=== PATIENT | male | born 1975 | race Caucasian/White ===

== ENCOUNTER 2024-07-10 12:22 | Emergency (ER) | payer OTHER, SELFPAY ==
[2024-07-10 12:29] VITALS: BP 132/85; PULSE 69; RESP 16; TEMP 36.8; O2SAT 97; BMI 21.6
--- NOTE | 2024-07-10 13:42 | ED.HA ---
HPI - Headache <Katie Bradley PA-C - Last Filed: 07/10/24 16:19> General Chief Complaint: Headache Stated Complaint: Severe Headache, Vomiting Time Seen by Provider: 07/10/24 13:41 Mode of arrival: Ambulatory History of Present Illness HPI Narrative: Mr. Jean-Baptiste is a very pleasant 49-year-old male with no reported past medical history who presents to the emergency department for a headache x3 days. He is here with his mother who contributes to the history. Patient states that he was traveling via plane on . When he was in the shuttle on his way home noticed a gradual development of a frontal headache. States that since then the headache has been persistent. Reports that it was at its worst night and has slightly resolved since then however he continues to have a pressure sensation across his forehead, occasionally worse on the right side. Denies a history of headache. He overall feels unwell and has had some nausea and vomiting on Friday. He has some body aches and slightly irritated throat. Reports taking ibuprofen yesterday which made him feel like his mind was racing so he has not taken any other medications however he has been applying ice packs to his forehead. Denies dizziness, double vision, lightheadedness, fevers. No head trauma. No drug or alcohol use. Related Data Previous Rx's Medication Instructions Recorded ondansetron 4 mg disintegrating 4 mg PO Q8H PRN nausea and 07/10/24 tablet vomiting #12 tabs Allergies Allergy/AdvReac Type Severity Reaction Status Date / Time No Known Drug Allergies Allergy Verified 07/10/24 12:29 Review of Systems <Katie Bradley PA-C - Last Filed: 07/10/24 16:19> Review of Systems ROS Unobtainable: All systems reviewed & are unremarkable except as noted in HPI and below Patient History <Katie Bradley PA-C - Last Filed: 07/10/24 16:19> Social History Smoking Status: Never smoker Smoking Status: Never smoker Exam <Katie Bradley PA-C - Last Filed: 07/10/24 16:19> Narrative Exam Narrative: GENERAL: 49 year old patient appears stated age. Well-developed patient, in no acute distress. HEAD: Atraumatic. Normocephalic. EYES: PERRL. Extraocular motions intact. No scleral icterus. No injection or drainage. ENT: Normal TMs bilaterally. Nose without bleeding, purulent drainage. Throat without erythema, tonsillar hypertrophy or exudate. Airway patent. NECK: Trachea midline. Cervical ROM intact. CARDIOVASCULAR: Regular rate and rhythm. RESPIRATORY: ?Nonlabored respirations. ?Speaking in clear, full sentences. ?Clear to auscultation. Breath sounds equal bilaterally. No wheezes, rales, or rhonchi. ? GASTROINTESTINAL: Abdomen soft, non-tender, nondistended. EXTREMITIES: No edema or joint tenderness. BACK: Nontender without deformity or crepitance. No flank tenderness. NEURO: AOx3. ?Clear speech. ?Moves all 4 extremities appropriately. SKIN: No rash or erythema of visible areas Initial Vital Signs Initial Vital Signs: Vital Signs Temperature 98.3 F 07/10/24 12:29 Pulse Rate 69 07/10/24 12:29 Respiratory Rate 16 07/10/24 12:29 Blood Pressure 132/85 07/10/24 12:29 Pulse Oximetry 97 07/10/24 12:29 Oxygen Delivery Method Room Air 07/10/24 12:29 <Ross Strickland MD - Last Filed: 07/10/24 20:40> Initial Vital Signs Initial Vital Signs: Vital Signs Temperature 98.3 F 07/10/24 12:29 Pulse Rate 69 07/10/24 12:29 Respiratory Rate 16 07/10/24 12:29 Blood Pressure 132/85 07/10/24 12:29 Pulse Oximetry 97 07/10/24 12:29 Oxygen Delivery Method Room Air 07/10/24 12:29 Course <Katie Bradley PA-C - Last Filed: 07/10/24 16:19> Orders Ordered: ED Orders 07/10/24 14:20 Complete Blood Count AUTO DIFF Stat Comprehensive Metabolic Panel Stat 07/10/24 14:23 Covid-19 + FLU A/B + RSV - PCR Stat Discontinued Medications Acetaminophen (Acetaminophen 325 Mg Tablet) 975 mg PO NOW ONE Stop: 07/10/24 13:54 Last Admin: 07/10/24 14:12 Dose: 975 mg Documented By: LAISHA Diphenhydramine HCl (Diphenhydramine 50 Mg/Ml Vial) 25 mg IV NOW ONE Stop: 07/10/24 13:54 Last Admin: 07/10/24 14:11 Dose: 25 mg Documented By: LAISHA Sodium Chloride (Normal Saline 0.9%) 1,000 mls @ 1,000 mls/hr IV BOLUS ONE Stop: 07/10/24 14:52 Last Infusion: 07/10/24 15:32 Dose: Infused Documented By: Admin: 07/10/24 14:13 Dose: 1,000 mls/hr Documented By: LAISHA Prochlorperazine (Prochlorperazine 10 Mg/2 Ml Vial) 10 mg IV NOW ONE Stop: 07/10/24 13:54 Last Admin: 07/10/24 14:10 Dose: 10 mg Documented By: LAISHA Vital Signs Vital signs: Vital Signs - 8 hr 07/10/24 16:23 Pulse Rate 65 Respiratory Rate 16 Blood Pressure 127/81 Pulse Oximetry 98 Oxygen Delivery Method Room Air <Ross Strickland MD - Last Filed: 07/10/24 20:40> Orders Ordered: ED Orders 07/10/24 14:20 Complete Blood Count AUTO DIFF Stat Comprehensive Metabolic Panel Stat 07/10/24 14:23 Covid-19 + FLU A/B + RSV - PCR Stat Discontinued Medications Acetaminophen (Acetaminophen 325 Mg Tablet) 975 mg PO NOW ONE Stop: 07/10/24 13:54 Last Admin: 07/10/24 14:12 Dose: 975 mg Documented By: LAISHA Diphenhydramine HCl (Diphenhydramine 50 Mg/Ml Vial) 25 mg IV NOW ONE Stop: 07/10/24 13:54 Last Admin: 07/10/24 14:11 Dose: 25 mg Documented By: LAISHA Sodium Chloride (Normal Saline 0.9%) 1,000 mls @ 1,000 mls/hr IV BOLUS ONE Stop: 07/10/24 14:52 Last Infusion: 07/10/24 15:32 Dose: Infused Documented By: Admin: 07/10/24 14:13 Dose: 1,000 mls/hr Documented By: LAISHA Prochlorperazine (Prochlorperazine 10 Mg/2 Ml Vial) 10 mg IV NOW ONE Stop: 07/10/24 13:54 Last Admin: 07/10/24 14:10 Dose: 10 mg Documented By: DKB Vital Signs Vital signs: Vital Signs - 8 hr 07/10/24 16:23 Pulse Rate 65 Respiratory Rate 16 Blood Pressure 127/81 Pulse Oximetry 98 Oxygen Delivery Method Room Air MDM - Headache <Katie Bradley PA-C - Last Filed: 07/10/24 16:19> Medical Records Attestation: I reviewed the patient's medical records. Lab Data 07/10/24 14:20 07/10/24 14:20 Labs: Lab Results 07/10/24 07/10/24 Range/Units 14:20 14:23 WBC 7.6 (4.5-11.0) X10^3/uL RBC 4.79 (4.5-5.9) X10^6/uL Hgb 14.8 (13.5-17.5) g/dL Hct 43.6 (41-53) % MCV 91.1 (80-100) fL MCH 30.8 (26-34) PG MCHC 33.8 (30-36) % RDW 12.9 (11.6-14.8) % Plt Count 204 (150-400) X10^3/uL Neut % (Auto) 76.7 H (50-75) % Lymph % (Auto) 13.9 L (25-40) % [place] % (Auto) 8.3 (3-14) % Eos % (Auto) 0.6 L (2-4) % Baso % (Auto) 0.5 (0-2) % Neut # (Auto) 5800 (4134-1420) /uL Lymph # (Auto) 1100 (8115-7340) /uL [place] # (Auto) 600 (0-900) /uL Eos # (Auto) 0 (0-450) /uL Baso # (Auto) 0 (0-100) /uL Sodium 135 L (137-145) mmol/L Potassium 4.0 (3.4-5.1) mmol/L Chloride 101 (98-107) mmol/L Carbon Dioxide 26 (22-32) mmol/L BUN 25 H (9-20) mg/dL Creatinine 1.32 H (0.66-1.25) mg/dL Estimated GFR > 60 (>60) mL/min BUN/Creatinine Ratio 18.9 (6-22) Glucose 108 H (70-100) mg/dL Calcium 9.0 (8.4-10.2) mg/dL Total Bilirubin 0.6 (0.2-1.3) mg/dL AST 38 (17-59) IU/L ALT 23 (<50) IU/L Alkaline Phosphatase 76 (38-126) U/L Total Protein 7.5 (6.3-8.2) g/dL Albumin 4.1 (3.5-5.0) g/dL Globulin 3.4 (1.7-4.1) g/dL Albumin/Globulin Ratio 1.2 (1.0-2.8) SARS-CoV-2 (PCR) Negative (Negative) Influenza A (RT-PCR) Flu a negative (NEGATIVE) Influenza B (RT-PCR) Flu b negative (NEGATIVE) RSV (PCR) Negative (Negative) MDM Narrative Medical decision making narrative: 49-year-old male with no reported past medical history who presents to the emergency department for a headache x3 days. He is here with his mother who contributes to the history. Differential diagnosis includes but is not limited to tension headache, migraine headache, viral syndrome, influenza, dehydration, electrolyte abnormality, gastroenteritis, etc. On exam the patient is in no acute distress, nontoxic-appearing, all vital signs within normal limits. No focal neurologic deficits. No meningismus. Normal TMs bilaterally. History is concerning for possible viral syndrome versus tension headache. No sudden onset or neurologic deficits or changes in vision concerning for the need for emergent head imaging. We will treat patient with IV fluids, Compazine, Benadryl, Tylenol and obtain baseline CBC and CMP given nausea and vomiting. No baseline labs available. Normal WBC count 7.6, hemoglobin 14.8, hematocrit 43.6. Sodium mildly decreased 135 normal potassium 4.0 chloride 101. BUN 25 and creatinine 1.32 with no baseline. Glucose 108. BUN creatinine ratio 18.9. 1523 re-examination of patient: Discussed lab work results including mildly elevated BUN and creatinine. Patient's headache is improving. COVID/flu/RSV negative. Patient feeling better. States that headache is still there slightly however much improved. He is requesting discharge at this time. Prescribed him Zofran if needed for nausea and recommend Tylenol if needed for headache. Recommended hydration. We did discussed strict ER return precautions and he understands that if his symptoms get worsening he may need to return to the ER for further evaluation or possible imaging. Patient and his mother verbalized understanding of all information and he is stable for discharge at this time. <Ross Strickland MD - Last Filed: 07/10/24 20:40> Lab Data Labs: Lab Results 07/10/24 07/10/24 Range/Units 14:20 14:23 WBC 7.6 (4.5-11.0) X10^3/uL RBC 4.79 (4.5-5.9) X10^6/uL Hgb 14.8 (13.5-17.5) g/dL Hct 43.6 (41-53) % MCV 91.1 (80-100) fL MCH 30.8 (26-34) PG MCHC 33.8 (30-36) % RDW 12.9 (11.6-14.8) % Plt Count 204 (150-400) X10^3/uL Neut % (Auto) 76.7 H (50-75) % Lymph % (Auto) 13.9 L (25-40) % [place] % (Auto) 8.3 (3-14) % Eos % (Auto) 0.6 L (2-4) % Baso % (Auto) 0.5 (0-2) % Neut # (Auto) 5800 (1953-5001) /uL Lymph # (Auto) 1100 (4548-3351) /uL [place] # (Auto) 600 (0-900) /uL Eos # (Auto) 0 (0-450) /uL Baso # (Auto) 0 (0-100) /uL Sodium 135 L (137-145) mmol/L Potassium 4.0 (3.4-5.1) mmol/L Chloride 101 (98-107) mmol/L Carbon Dioxide 26 (22-32) mmol/L BUN 25 H (9-20) mg/dL Creatinine 1.32 H (0.66-1.25) mg/dL Estimated GFR > 60 (>60) mL/min BUN/Creatinine Ratio 18.9 (6-22) Glucose 108 H (70-100) mg/dL Calcium 9.0 (8.4-10.2) mg/dL Total Bilirubin 0.6 (0.2-1.3) mg/dL AST 38 (17-59) IU/L ALT 23 (<50) IU/L Alkaline Phosphatase 76 (38-126) U/L Total Protein 7.5 (6.3-8.2) g/dL Albumin 4.1 (3.5-5.0) g/dL Globulin 3.4 (1.7-4.1) g/dL Albumin/Globulin Ratio 1.2 (1.0-2.8) SARS-CoV-2 (PCR) Negative (Negative) Influenza A (RT-PCR) Flu a negative (NEGATIVE) Influenza B (RT-PCR) Flu b negative (NEGATIVE) RSV (PCR) Negative (Negative) Discharge Plan Departure Patient Disposition: Home Clinical Impression: Headache Qualifiers: Headache type: unspecified Headache chronicity pattern: acute headache Intractability: not intractable Qualified Code(s): R51.9 - Headache, unspecified Nausea & vomiting Qualifiers: Vomiting type: unspecified Qualified Code(s): R11.2 - Nausea with vomiting, unspecified Instructions: DI for Headache Activity Restrictions/Additional Instructions: Dear Mr. Jean-Baptiste, Today you were evaluated for headache. Your COVID/flu/RSV swab was negative. Your lab work was overall reassuring however your complete metabolic panel did reveal some changes in your kidney function which are concerning for dehydration. It is very important to hydrate with small but frequent sips of water or Pedialyte and follow up with the primary care doctor to have repeat lab work done. I have prescribed you a nausea medicine called Brandon to take if needed. You may also take Acetaminophen 650 mg every 4-6 hours for pain. Do not exceed 3000 mg of Tylenol a day as this can cause liver damage. Do not drink alcohol with either of these medications. Return to the ER if you have worsening symptoms, symptoms that do not improve, change in vision, persistent vomiting, or any other concerns. Please follow up with your primary care doctor within the next 2-3 days for ER follow-up. (If you do not have a PCP you can call [phone]. ?to schedule an appointment with an [facility] Primary Care Provider) IF YOU DEVELOP ANY NEW OR WORSENING SYMPTOMS, RETURN TO THE ER! Please read the attached instructions, they highlight more specific treatments and interventions for you at home. Thank you for letting me participate in your care, Katie Bradley PA-C Prescriptions: New ondansetron 4 mg tablet,disintegrating 4 mg PO Q8H PRN (Reason: nausea and vomiting) Qty: 12 0RF Referrals: Miscellaneous,Doctor, [Primary Care Provider] - Stand Alone Forms: Patient Portal/API/Survey ED Sign-out <Ross Strickland MD - Last Filed: 07/10/24 20:40> Cosign ED Attending Erick Attestation: I was immediately available in the department for consultation. This documentation has been reviewed and I agree with assessment and plan. Supervised by Ross Strickland MD
[2024-07-10] MEDS: PROCHLORPERAZINE 10 MG/2 ML VIAL IV (14:10)
[2024-07-10] MEDS: diphenhydrAMINE 50 MG/ML VIAL 25 MG IV (14:11)
[2024-07-10] MEDS: ACETAMINOPHEN 325 MG TABLET 975 MG PO (14:12)
[2024-07-10] MEDS: SODIUM CHLORIDE 0.9% 1,000 ML 1000 ML IV (14:13)
[2024-07-10 14:33] LABS: Add Manual Diff / Slide Review NO; Basophils Absolute Auto 0 /uL (0-100); Basophils Percent Auto 0.5 % (0-2); Eosinophils Absolute Auto 0 /uL (0-450); Eosinophils Percent Auto 0.6 % (2-4); Hematocrit 43.6 % (41-53); Hemoglobin 14.8 g/dL (13.5-17.5); Lymphocytes Absolute Auto 1100 /uL (1100-4500); Lymphocytes Percent Auto 13.9 % (25-40); Mean Corpuscular HGB Conc 33.8 % (30-36); Mean Corpuscular Hemoglobin 30.8 PG (26-34); Mean Corpuscular Volume 91.1 fL (80-100); Monocytes Absolute Auto 600 /uL (0-900); Monocytes Percent Auto 8.3 % (3-14); Neutrophils Absolute Auto 5800 /uL (1500-7000); Neutrophils Percent Auto 76.7 % (50-75); Platelet Count 204 X10^3/uL (150-400); Red Blood Cell Count 4.79 X10^6/uL (4.5-5.9); Red Cell Distribution Width 12.9 % (11.6-14.8); White Blood Cell Count 7.6 X10^3/uL (4.5-11.0)
[2024-07-10 14:49] LABS: Alanine Aminotransferase 23 IU/L (<50); Albumin 4.1 g/dL (3.5-5.0); Albumin Globulin Ratio 1.2 (1.0-2.8); Alkaline Phosphatase 76 U/L (38-126); Aspartate Aminotransferase 38 IU/L (17-59); BUN Creatinine Ratio 18.9 (6-22); Bilirubin Total 0.6 mg/dL (0.2-1.3); Blood Urea Nitrogen 25 mg/dL (9-20); Carbon Dioxide 26 mmol/L (22-32); Chloride 101 mmol/L (98-107); Estimated Glomerular Filt Rate > 60 mL/min (>60); Globulin 3.4 g/dL (1.7-4.1); Glucose 108 mg/dL (70-100); HEMOLYSIS < 15 (0-50); Sodium 135 mmol/L (137-145); Total Protein 7.5 g/dL (6.3-8.2)
[2024-07-10 15:35] LABS: COVID-19 CEPHEID 4-PLEX PCR Negative (Negative); Influenza A - CEPHEID Flu A NEGATIVE (NEGATIVE); Influenza B - CEPHEID Flu B NEGATIVE (NEGATIVE); Respiratory Syncytial Virus Negative (Negative)
[2024-07-10 16:23] VITALS: BP 127/81; PULSE 65; RESP 16; O2SAT 98
== END 2024-07-10 16:23 | disposition home or self-care (01) ==
PROVIDERS: Emergency Provider Physician Assistant
DX: R51.9 Headache, unspecified (principal); R11.2 Nausea with vomiting, unspecified
CPT/HCPCS: 0241U; 36415; 80053; 85025; 96361; 96374; 96375; 99284; J0780; J1200